=== PATIENT | female | born 2005 | race Caucasian/White ===

== ENCOUNTER 2025-01-19 09:06 | Outpatient (CLI) | payer MEDICAID ==
--- NOTE | 2025-01-19 11:08 | RADIOLOGY REPORT ---
INDICATION: PAIN COMPARISON: None TECHNIQUE: 4 views of the lumbar spine were obtained. FINDINGS: The lumbar vertebral alignment is normal. The intervertebral disc spaces are well-maintained. No significant facet arthropathy is noted. No acute fracture, vertebral compression deformity or aggressive osseous lesions. The paravertebral soft tissues are grossly unremarkable. IMPRESSION: No acute fracture or subluxation.
== END 2025-01-19 23:59 | disposition home or self-care (01) ==
LOC: RAD 09:06
PROVIDERS: ATTEND Nurse Practitioner Family
DX: M54.50 Low back pain, unspecified (principal)
CPT/HCPCS: 72110